=== PATIENT | male | born 1945 | race Caucasian/White ===

== ENCOUNTER 2019-07-04 17:55 | Emergency (ER) | payer MEDICARE ==
[2019-07-04] MEDS ORDERED: Acetaminophen/HYDROcodone 325-10 MG Tab PO ONE (17:56)
[2019-07-04] MEDS ORDERED: Ondansetron 4 MG/2 ML SDV IV ONE (19:35)
[2019-07-04] MEDS ORDERED: Sodium Chloride 0.9% 1,000 ML IV ONE (19:35)
[2019-07-04] MEDS ORDERED: Ketorolac 30 MG/ML SDV IVPUSH ONE (19:35)
--- NOTE | 2019-07-04 19:39 | EDM.PDOC ---
ED HPI GENERAL MEDICAL PROBLEM - General Chief Complaint: Flank Pain Stated Complaint: PAIN IN R SIDE Time Seen by Provider: 07/04/19 19:36 Source of Information: Reports: Patient History Limitations: Reports: No Limitations - History of Present Illness INITIAL COMMENTS - FREE TEXT/NARRATIVE: onset right flank pain while asleep, no vomiting little nauseous, denies urinary problems, denies injury. denies h/o K-stones. Right Flank Pain Score (Numeric/FACES): 8 - Related Data Allergies Allergy/AdvReac Type Severity Reaction Status Date / Time No Known Allergies Allergy Verified 07/04/19 18:12 Home Meds: Home Meds Cholecalciferol (Vitamin D3) [Vitamin D3] 07/04/19 [History] Zinc Gluconate [Zinc] 07/04/19 [History] Social & Family History - Tobacco Use Smoking Status *Q: Never Smoker - Caffeine Use Caffeine Use: Reports: None - Recreational Drug Use Recreational Drug Use: No ED ROS GENERAL - Review of Systems Review Of Systems: ROS reveals no pertinent complaints other than HPI. ED EXAM, RENAL/ - Physical Exam Exam: See Below Exam Limited By: No Limitations General Appearance: Alert, WD/WN, Mild Distress, Other (discomfort) Ears: Hearing Grossly Normal Throat/Mouth: Normal Voice, No Airway Compromise Head: Atraumatic Neck: Non-Tender, Full Range of Motion Respiratory/Chest: No Respiratory Distress Cardiovascular: Regular Rate, Rhythm GI/Abdominal: Soft, Non-Tender Back Exam: CVA Tenderness (R) Neurological: Alert, Oriented, Normal Cognition, Normal Gait, No Motor/Sensory Deficits Psychiatric: Normal Affect, Normal Mood Skin Exam: Warm, Dry, Normal Color Lymphatic: No Adenopathy Course - Vital Signs Last Recorded V/S: Last Vital Signs Temp 36.4 C 07/04/19 18:14 Pulse 96 07/04/19 18:14 Resp 16 07/04/19 18:14 BP 188/84 H 07/04/19 18:14 Pulse Ox 95 07/04/19 18:14 - Orders/Labs/Meds Orders: Active Orders 24 hr Category Date Time Status Abdomen Pelvis wo Cont [CT] Urgent Exams 07/04/19 19:39 Taken Sodium Chloride 0.9% [Normal Saline] 1,000 ml Med 07/04/19 19:35 Active IV .BOLUS Medication Orders Sodium Chloride (Normal Saline) 1,000 mls @ 500 mls/hr IV .BOLUS ONE Stop: 07/04/19 21:34 Last Admin: 07/04/19 19:55 Dose: 500 mls/hr Labs: Laboratory Tests 07/04/19 07/04/19 07/04/19 Range/Units 18:10 19:47 19:47 WBC 15.3 H (5.0-10.0) 10^3/uL RBC 5.28 (4.6-6.2) 10^6/uL Hgb 15.5 (14.0-18.0) g/dL Hct 45.4 (40.0-54.0) % MCV 86.0 (80-100) fL MCH 29.4 (27.0-34.0) pg MCHC 34.1 (33.0-35.0) g/dL Plt Count 272 (150-450) 10^3/uL Neut % (Auto) 83.5 H (42.2-75.2) % Lymph % (Auto) 8.3 L (20.5-50.1) % Villalba % (Auto) 7.4 (2-8) % Eos % (Auto) 0.2 L (1.0-3.0) % Baso % (Auto) 0.6 (0.0-1.0) % Sodium 139 (135-145) mmol/L Potassium 4.4 (3.6-5.0) mmol/L Chloride 102 (101-111) mmol/L Carbon Dioxide 26.0 (21.0-31.0) mmol/L Anion Gap 15.4 BUN 24 H (7-18) mg/dL Creatinine 1.3 (0.6-1.3) mg/dL Est Cr Clr Drug Dosing 55.55 mL/min Estimated GFR (MDRD) 54 BUN/Creatinine Ratio 18.46 Glucose 129 H (74-105) mg/dL Calcium 9.2 (8.4-10.2) mg/dl Total Bilirubin 0.9 (0.2-1.0) mg/dL AST 23 (10-42) IU/L ALT 30 (10-60) IU/L Alkaline Phosphatase 52 (42-121) IU/L B-Natriuretic Peptide 9 (0-100) pg/ml Total Protein 7.4 (6.7-8.2) g/dl Albumin 4.3 (3.2-5.5) g/dl Globulin 3.1 Albumin/Globulin Ratio 1.39 Urine Color Red (YELLOW) Urine Appearance Cloudy (CLEAR) Urine pH 5.5 (5.0-9.0) Ur Specific Billingsley >= 1.030 (1.005-1.030) Urine Protein 100 H (NEGATIVE) Urine Glucose (UA) Negative (NEGATIVE) Urine Ketones Trace H (NEGATIVE) Urine Occult Blood Large H (NEGATIVE) Urine Nitrite Negative (NEGATIVE) Urine Bilirubin Negative (NEGATIVE) Urine Urobilinogen 0.2 (0.2-1.0) mg/dL Ur Leukocyte Esterase Negative (NEGATIVE) Urine RBC >100 H /HPF Urine WBC 0-5 (0-5/HPF) /HPF Ur Epithelial Cells Few (NOT SEEN) /HPF Urine Bacteria Few (0-FEW/HPF) /HPF Urine Mucus Few H (NOT SEEN) /LPF Meds: Medications Generic Name Dose Route Start Last Admin Trade Name Freq PRN Reason Stop Dose Admin Sodium Chloride 1,000 mls @ 500 mls/hr 07/04/19 19:35 07/04/19 19:55 Normal Saline IV 07/04/19 21:34 500 mls/hr .BOLUS ONE Administration Discontinued Medications Generic Name Dose Route Start Last Admin Trade Name Freq PRN Reason Stop Dose Admin Ketorolac Tromethamine 30 mg 07/04/19 19:35 07/04/19 19:58 Toradol IVPUSH 07/04/19 19:36 30 mg ONETIME ONE Administration Ondansetron HCl 4 mg 07/04/19 19:35 07/04/19 19:56 Zofran IV 07/04/19 19:36 4 mg ONETIME ONE Administration - Re-Assessments/Exams Free Text/Narrative Re-Assessment/Exam: 07/04/19 20:34 re-exam; s/p IV toradol = much better now. 07/04/19 21:11 results discussed with pt whose pain gone now. Departure - Departure Time of Disposition: 21:12 Disposition: Home, Self-Care 01 Condition: Good Clinical Impression: Kidney stone on right side - Discharge Information Instructions: Kidney Stones, [id number] Forms: ED Department Discharge Additional Instructions: 1) rest 2) drink lots of liquids rx togo; norco 10 x 1 - My Orders Last 24 Hours: My Active Orders 07/04/19 19:35 Sodium Chloride 0.9% [Normal Saline] 1,000 ml IV .BOLUS 07/04/19 19:39 Abdomen Pelvis wo Cont [CT] Urgent - Assessment/Plan Last 24 Hours: My Active Orders 07/04/19 19:35 Sodium Chloride 0.9% [Normal Saline] 1,000 ml IV .BOLUS 07/04/19 19:39 Abdomen Pelvis wo Cont [CT] Urgent
[2019-07-04 20:14] LABS: ANION GAP 15.4
[2019-07-04] MEDS ORDERED: Acetaminophen/HYDROcodone 325-10 MG Tab ONE (21:16)
== END 2019-07-04 21:24 | disposition home or self-care (01) ==
LOC: DL.ED 17:55
DX: N20.2 Calculus of kidney with calculus of ureter (principal)
CPT/HCPCS: 36415; 74176; 80053; 81001; 83880; 85025; 96361; 96374; 96375; 99284-25; A9270-GY; J1885; J2405; J7030